=== PATIENT | female | born 1970 | race Caucasian/White ===

== ENCOUNTER → 2024-09-22 09:26 | Outpatient (REF) | payer OTHER, SELFPAY | LOC: HWWDC 09:26 | PROVIDERS: ATTENDING PHYSICIAN Family Medicine; FAMILY PHYSICIAN Obstetrics & Gynecology | DX: Z12.31 Encounter for screening mammogram for malignant neoplasm of breast (principal) | CPT/HCPCS: 77063; 77067 ==

== ENCOUNTER → 2024-12-28 15:51 | Outpatient (REF) | payer OTHER, SELFPAY | LOC: HWRAD 15:51 | PROVIDERS: ATTENDING PHYSICIAN Family Medicine | DX: R06.02 Shortness of breath (principal) | CPT/HCPCS: 71046 ==

== ENCOUNTER → 2025-10-20 11:58 | Outpatient (REF) | payer OTHER, SELFPAY | LOC: HWWDC 11:58 | PROVIDERS: ATTENDING PHYSICIAN Obstetrics & Gynecology; FAMILY PHYSICIAN Family Medicine | DX: Z12.31 Encounter for screening mammogram for malignant neoplasm of breast (principal) | CPT/HCPCS: 77063; 77067 ==